=== PATIENT | male | born 1935 | race Caucasian/White ===

== ENCOUNTER → 2020-05-31 | Outpatient (CLI) | payer OTHER ==
[~2020-05-31] MED LIST: ASA81BEC PO; COLACE100 MG PO; LIPITOR10 MG PO; LISINOPRIL5 MG PO; LORTAB 7.5-3251 EACH PO; MAGNESIUM OXID400 MG PO; SENOKOT-S1 TA1 PO; TOPROL XL50 MG PO; TYLENOL325 MG PO
== END ==
LOC: SJCVCIMAG 10:58
PROVIDERS: ATTEND Internal Medicine
DX: I08.8 Other rheumatic multiple valve diseases (principal); I25.5 Ischemic cardiomyopathy; Z79.82 Long term (current) use of aspirin; Z79.899 Other long term (current) drug therapy

== ENCOUNTER → 2021-05-22 | Outpatient (CLI) | payer OTHER | LOC: SJCVCIMAG 11:40 | PROVIDERS: ATTEND Internal Medicine | DX: I08.8 Other rheumatic multiple valve diseases (principal); I48.91 Unspecified atrial fibrillation; R94.31 Abnormal electrocardiogram [ECG] [EKG]; I25.5 Ischemic cardiomyopathy; E78.5 Hyperlipidemia, unspecified; I50.20 Unspecified systolic (congestive) heart failure; I38 Endocarditis, valve unspecified; E11.9 Type 2 diabetes mellitus without complications; Z79.82 Long term (current) use of aspirin; Z79.899 Other long term (current) drug therapy ==